=== PATIENT | female | born 1950 | race Caucasian/White ===

== ENCOUNTER → 2022-09-16 | Outpatient (CLI) | payer MEDICARE, OTHER | END | disposition home or self-care (01) | LOC: RADPV 13:20 | PROVIDERS: ATTEND Student in an Organized Health Care Education/Training Program | DX: M81.8 Other osteoporosis without current pathological fracture (principal); Z13.820 Encounter for screening for osteoporosis; Z76.89 Persons encountering health services in other specified circumstances; Z78.0 Asymptomatic menopausal state | CPT/HCPCS: 77080 ==